=== PATIENT | male | born 1935 | race Caucasian/White ===

== ENCOUNTER → 2022-04-29 | Outpatient (CLI) | payer MEDICARE, OTHER, SELFPAY ==
[2022-04-29 11:16] LABS: Erythrocyte Sedimentation Rate 2 mm/hr (0-20)
[2022-04-29 11:30] LABS: Absolute Lymphocyte Count 1.89 X10^3/uL (0.83-4.51); Basophil# 0.04 X10^3/uL; Basophil% 0.7 % (0-1); Eosinophil# 0.11 X10^3/uL; Eosinophils% 1.9 % (0-5); Hematocrit 41.2 % (40-54); Hemoglobin 13.1 g/dL (13.0-16.5); Lymphocyte # 1.89 X10^3/ul (0.83-4.51); Lymphocyte % 32.4 % (19-41); Mean Corp Hgb Conc 31.8 g/dL (32-36); Mean Corpuscular Volume 94.5 fL (80-94); Mean Platelet Vol. 10.6 fl (6.2-12.0); Monocyte# 0.81 X10^3/uL; Monocyte% 13.9 % (0-10); NRBC Flagged by Analyzer 0 % (0-5); Neutrophil # 2.97 X10^3/uL (2.7-7.7); Neutrophil % 50.8 % (47-70); Platelet Count 112 K/mm3 (150-450); RBC Distribution Width CV 13.2 % (11.6-14.6); RBC Distribution Width SD 45.9 fl (35.1-43.9); Red Blood Count 4.36 M/mm3 (4.6-6.2); White Blood Count 5.8 K/mm3 (4.4-11.0)
[2022-04-29 11:55] LABS: AST(SGOT) 17 U/L (15-37); Alanine Aminotransfer ALT/SGPT 12 U/L (16-61); Albumin, Serum 3.5 g/dL (3.2-5.0); Alkaline Phosphatase 96 U/L (45-117); Anion Gap 6 (5-15); BUN 19 mg/dL (7-18); BUN/Creat Ratio 14.2 RATIO (10-20); CRP < 2.90 mg/L (0.0-3.0); Calcium,Total 9.4 mg/dL (8.5-10.1); Chloride 107 mmol/L (98-107); Creatinine, Serum 1.34 mg/dL (0.70-1.30); EST Glomerular Filtration Rate 54 mL/min (>60); Est Glom Filt Rate - Afr Amer 65 mL/min (>60); Globulin 3.4 g/dL (2.2-4.2); Glucose 88 mg/dL (74-106); LDH 179 U/L (87-241); Potassium 3.5 mmol/L (3.5-5.1); Protein, Total 6.9 g/dL (6.4-8.2); Sodium Level 142 mmol/L (136-145)
[2022-04-30 13:08] LABS: Anti-Centromere B Ab <0.2 AI (0.0-0.9); Anti-Jo <0.2 AI (0.0-0.9); Anti-Scleroderma-70 AB <0.2 AI (0.0-0.9); RNP Ab <0.2 AI (0.0-0.9); SJOGREN'S Anti-SS-A test 0.2 AI (0.0-0.9); SJOGREN'S Anti-SS-B test < 0.2 AI (0.0-0.9); Smith Ab <0.2 AI (0.0-0.9)
[2022-04-30 15:08] LABS: Endomysial Antibody IgA Negative (Negative)
[2022-04-30 22:50] LABS: Immunoglobulin A 171 mg/dL (61-437); t-Transglutaminase IgA <2 U/mL (0-3)
[2022-04-30 22:58] LABS: Anti-dsDNA Ab 1 IU/mL (0-9)
[2022-05-05 03:07] LABS: Albumin 3.6 g/dL (2.9-4.4); Alpha-1-Globulins 0.2 g/dL (0.0-0.4); Alpha-2-Globulins 0.6 g/dL (0.4-1.0); Cytoplasmic Ab (C-ANCA) <1:20 titer (Neg:<1:20); Gamma Globulin 1.3 g/dL (0.4-1.8); Immunoglobulin A 174 mg/dL (61-437); Immunoglobulin E 48 IU/mL (6-495); Immunoglobulin G 879 mg/dL (603-1613); Immunoglobulin M 555 mg/dL (15-143); PROEL- TOTAL PROTEIN 6.4 g/dL (6.0-8.5)
[2022-05-05 14:25] LABS: Perinuclear Ab (P-ANCA) <1:20 titer (Neg:<1:20)
== END | disposition home or self-care (01) ==
PROVIDERS: PCP Internal Medicine; Referring Provider Internal Medicine Gastroenterology; Visit Provider Internal Medicine Gastroenterology
DX: R19.8 Other specified symptoms and signs involving the digestive system and abdomen (principal)
CPT/HCPCS: 36415; 80053; 82784; 82785; 83516; 83615; 84165; 85025; 85652; 86140; 86225; 86235; 86255; 86256; 86334

== ENCOUNTER → 2022-05-05 | Outpatient (CLI) | payer MEDICARE, OTHER, SELFPAY ==
[2022-05-08 20:34] LABS: Pancreatic Elastase, Fecal 283 (>200)
[2022-05-11 19:05] LABS: Calprotectin, Stool 25 ug/g (0-120)
== END | disposition home or self-care (01) ==
PROVIDERS: PCP Internal Medicine; Referring Provider Internal Medicine Gastroenterology; Visit Provider Internal Medicine Gastroenterology
DX: K58.9 Irritable bowel syndrome, unspecified (principal); R19.8 Other specified symptoms and signs involving the digestive system and abdomen
CPT/HCPCS: 82653; 83630; 83993; 87177; 87209; 87329

== ENCOUNTER → 2022-05-12 | Outpatient (CLI) | payer MEDICARE, OTHER, SELFPAY ==
--- NOTE | 2022-05-12 10:02 | NM_ITS ---
CLINICAL: 86-year-old male with history of clinical gastroparesis. SEMI-SOLID PHASE 99m Tc SULFUR COLLOID GASTRIC EMPTYING STUDY COMPARISON: None available FINDINGS: The patient was administered 1.2 mCi of 99m Tc sulfur colloid mixed with oatmeal and consumed per os. Image acquisitions in the anterior-posterior projections were obtained for 60 minutes. There is prompt visualization of the stomach. There is no gastroesophageal reflux identified. The T ? raw data emptying was calculated to be 54.9 minutes, (Normal: 12-56 minutes). NM/Gastric Emptying Study IMPRESSION: 1. NORMAL 99m Tc sulfur colloid semi-solid phase (oatmeal) gastric emptying imaging examination. A. There is upper limits of normal normal and preserved semi-solid phase gastric emptying compared to normal controls. (Sana et al, J Nucl Med Tech 38: 186, 2010). Electronically Signed: Tr Tellez, at 20:20 EST ,
== END | disposition home or self-care (01) ==
LOC: NM 09:57
PROVIDERS: PCP Internal Medicine; Referring Provider Internal Medicine Gastroenterology; Visit Provider Internal Medicine Gastroenterology
DX: R19.8 Other specified symptoms and signs involving the digestive system and abdomen (principal)
CPT/HCPCS: 78264; A9541

== ENCOUNTER → 2022-05-28 | Outpatient (CLI) | payer MEDICARE, OTHER, SELFPAY ==
--- NOTE | 2022-05-28 06:58 | RAD_ITS ---
STUDY: X-RAY BONE SURVEY COMPLETE REASON FOR EXAM: Male, 86 years old. MGUS -- Bony demineralization with chronic mild compression superior endplate T12 vertebral body. -- -- pt had CT done today Pls refer TECHNIQUE: One view of the pelvis was obtained. 2 views of the cervical spine were obtained. 2 views of the thoracic spine were obtained. 2 views of the lumbar spine were obtained. 8 views of the femur. 4 views of the humerus. : 2 views of the skull were obtained. COMPARISON: None. FINDINGS: CHEST: Diminished inspiratory effort with minor basilar atelectasis on the left. There is no demonstrated pleural abnormality. Pacer noted on the left with electrodes in satisfactory position Normal size heart. Normal mediastinum and joaquin. Normal visualized pulmonary arteries. Mildly calcified aortic arch and descending thoracic aorta. Postop change status post median sternotomy and CABG Normal visualized thoracic spine. Normal visualized ribs, clavicles, and shoulders. Postop change status post cholecystectomy. PELVIS: There is a non-specific bowel gas pattern. Normal visualized soft tissue structures. Normal bilateral iliac wings, sacroiliac joints and visualized sacrum. Normal visualized bilateral superior and inferior pubic rami. Normal pubic symphysis. Normal ischial tuberosities. Normal visualized right femoral head. Normal right acetabulum. Normal right hip joint. Normal visualized left femoral head. Normal left acetabulum. Normal left hip joint. CERVICAL SPINE: Normal anterior atlantoaxial articulation. Normal odontoid process. Normal cervical lordosis. Normal vertebral bodies and endplates. Multilevel disc space narrowing and endplate spurring The soft tissue structures are unremarkable. THORACIC SPINE: Normal kyphosis of the thoracic spine. There is no substantial scoliosis. Mild chronic wedging of superior endplate of T12. Normal disc space heights. The soft tissue structures are unremarkable. LUMBAR SPINE: Normal lumbar lordosis. There is no substantial scoliosis. There is a normal alignment of the vertebrae. Normal vertebral bodies and endplates. Normal disc space heights. The soft tissue structures are unremarkable. RIGHT FEMUR: Normal visualized femur. Normal visualized soft tissue structure. LEFT FEMUR: Normal visualized femur. Normal visualized soft tissue structure. RIGHT HUMERUS :Normal visualized humerus. There is no demonstrated fracture or osseous destructive process. There are surgical clips in the soft tissues of the medial calf. LEFT HUMERUS:Normal visualized humerus. There is no demonstrated fracture or osseous destructive process. There is no demonstrated soft tissue abnormality. SKULL: There is no demonstrated soft tissue swelling. Normal osseous calvarium. Normal visualized facial bones. Normal visualized paranasal sinuses. RAD/Bone Survey Comp(Axial&Append) IMPRESSION: Bony structures are diffusely osteopenic consistent with age Chronic wedging of superior endplate T12. No lytic changes to suggest presence of multiple myeloma or plasmacytoma Electronically Signed: Matthew Myles MD at 18:56 EDT ,
--- NOTE | 2022-05-28 06:58 | CT_ITS ---
STUDY: CT CHEST, ABDOMEN T PELVIS WITH CONTRAST REASON FOR EXAM: Male, 86 years old. MGUS. Intermittent epigastric pain. RADIATION DOSAGE (If Supplied By Facility): CTDIvol = ( 19.01 ) mGy, DLP = ( 1848.31 ) mGycm TECHNIQUE: Transaxial imaging was performed following intravenous administration of IV 100mL Isovue-370. Individualized dose optimization techniques were used for this CT. COMPARISON: No relevant priors. FINDINGS: CHEST Heart and great vessels: Mild cardiomegaly, with particular distention of the left atrium and left ventricle. Implanted cardiac device partially visible left chest with leads extending into the right atrium, right ventricle and along the margin of the left ventricle. Status post CABG. Calcific atherosclerosis of the [place] coronary arteries. No pulmonary embolus. No dissection or aneurysm of the thoracic aorta. Lungs, pleura, airways: No pneumonia, edema, or acute abnormality in the lungs. No pleural effusion. No pneumothorax. Mild subsegmental atelectasis lung bases. Mediastinum: No adenopathy or mass or hematoma. Osseous:No acute osseous abnormality. Chronic mild compression superior endplate T12 vertebral body. Bony demineralization. Chest wall: No concerning findings. ABDOMEN AND PELVIS Liver: No concerning lesions. Subcentimeter benign cyst anterior aspect right lobe. Gallbladder and biliary tree: Status post cholecystectomy. No biliary ductal dilation. Pancreas: No pancreatic lesions or inflammation. Spleen: Normal size, no splenic lesions. Adrenal glands: No concerning masses. Kidneys and ureters: No hydronephrosis or renal stones. No concerning masses. No ureteral dilation. Bowel: Normal appendix. No obstruction or inflammation of the bowel. 2 noninflamed diverticula off the transverse duodenum. Urinary bladder: No stones or wall thickening. Reproductive: Prostate mildly enlarged. Vascular: No abdominal aortic aneurysm. Prominent atherosclerosis of the distal abdominal aorta and iliac arteries. Patent portal and mesenteric veins. Retroperitoneal and peritoneal spaces: Trace simple density ascites in the pelvis. No free air, no extraluminal air, no abscess, no lymphadenopathy. Osseous: No acute osseous abnormality. Bony demineralization. Abdominal and pelvic wall: No concerning findings. Any findings described in the findings sections and not included in the impression are incidental and do not require imaging follow-up. CT/CT Chest, Abd, Pel w/Contrast IMPRESSION: No acute findings. Mild cardiomegaly, status post CABG. Bony demineralization with chronic mild compression superior endplate T12 vertebral body. Trace of simple density ascites in the pelvis. Electronically Signed: Bernabe Pruett MD at 7:47 EDT Reading Location ID and State: [facility] / [place] Tel , Service support ,
== END | disposition home or self-care (01) ==
LOC: CT 06:57
PROVIDERS: PCP Internal Medicine; Visit Provider Internal Medicine Medical Oncology
DX: D47.2 Monoclonal gammopathy (principal); C88.0 Waldenstrom macroglobulinemia
CPT/HCPCS: 71260; 74177; 77075; Q9967

== ENCOUNTER 2022-07-09 06:31 | Day surgery (SDC) | payer MEDICARE, OTHER, SELFPAY ==
[2022-07-09 07:00] VITALS: BP 132/58; PULSE 73; RESP 16; TEMP 36.7; O2SAT 95; BMI 30.4
[2022-07-09] MEDS: Lactated Ringers 1,000 ML 15 ML IV (07:04)
--- NOTE | 2022-07-09 07:45 | EGD_PTH ---
PATIENT: LIZZ GAONA LOC: EN U#:[id number] AGE/SX: 86/M ROOM: RE07/09/[address]: Dr. Charlie Michelle DO : 1935 BED: DIS: 07/09/2022 SPEC #: [id number] RECD: 07/09/22 10:14 STATUS: СВЕТЛАНА JANIE #: [id number] SHIRIN: 07/09/22 07:[address]: Charlie Michelle DEPT: SURGICAL PATHOLOGY RECD BY: Kostas Morel ENTERED: 07/09/22 12:15 SP TYPE: EGD BIOPSY AJAY DR: Dr. Justyn Saldana MD Tissues: A - Duodenum, NOS B - Esophagus, NOS Procedures: Special Stain Group II Surgery Specimen Level IV Alcian Blue/PAS (control) HEADER OPERATION: EGD with biopsies (MAC) PRE-OP DIAGNOSIS: Screening TISSUE SUBMITTED: A ? Duodenum biopsy, B ? Distal esophagus biopsy MICROSCOPIC DIAGNOSIS A. Duodenum, biopsy: No pathologic change. B. Distal esophagus, biopsy: Gastroesophageal junctional mucosa with mild chronic inflammation. No evidence of goblet cell metaplasia. See comment. AM:layla 07/10/2022 MICROSCOPIC DESCRIPTION Slides are reviewed. GROSS DESCRIPTION A - Received in fixative is one container labeled with the patient's name and designated duodenum biopsy. The specimen consists of one irregular fragment of light durham soft tissue that measures 0.5 x 0.5 x 0.1 cm. The specimen is totally submitted in one cassette. B - Received in fixative is one container labeled with the patient's name and designated distal esophagus. The specimen consists of multiple irregular fragments of light durham soft tissue that in aggregate measure 1.0 x 1.0 x 0.1 cm. The specimen is totally submitted in one cassette. / AM:layla 07/09/2022 TC:3 CPT: 20408 x2, 12223
--- NOTE | 2022-07-09 07:47 | HP.PCM_ITS ---
History and Physical Date of Admission: 07/09/22 86 M who presents to the office today for Initial consult. PMH BPH, CAD, cardiac pacemaker, CKD III, CHF, SCC, hyperlipidemia, HTN, ischemic cardiomyopathy, Hx [place], DORENE. PSH cholecystectomy, CABG, PTCA. Previous workup Colonoscopy?5+ years prior with likely normal results. EGD 10.29.15?JPH advanced to second portion of duodenum noting distal esophageal stricture; hiatal hernia; esophagitis; gastric erythema. CT abd/pel 1?JPH abdominal pain noting nonspecific mesenteric stranding in the mid abdomen; high density material seen in stomach; small umbilical hernia CT abd/pel JPH 06.04.21?with possibility of appendagitis; small umbilical hernia. *BGI established 04.29.22 with referral from PCP. He has been having difficulty with abdominal bloating, constipation hard stool with incomplete evacuation/diarrhea each lasting approximately a week, bloody stool for a week approximately three weeks ago spontaneously resolved, intermittent lower abdominal pain. ROS Const Constitutional: No anorexia, fatigue, fever(s), weight change or sleep problems Eyes Eyes: No change in vision ENT ENT: No abnormal hearing, difficulty swallowing, mouth lesions, tongue swelling or throat swelling Resp Respiratory: No cough or shortness of breath Cardio Cardiology: No chest pain at rest, chest pain with exertion, shortness of breath or dyspnea on exertion Gastro GI: No difficulty swallowing Genitourinary Male: No difficulty urinating or burning urination Musc Musculoskeletal: No joint pain, joint swelling, muscle weakness or decreased muscle mass Skin Skin: No hair loss in leg, yellowing of the eye, itchy eyes, rash, skin ulcer or skin swelling Neuro Neurology: No abnormal hearing, abnormal movements, confusion, unsteady gait/balance or memory loss Psych Psychiatric: No anxiety, No confusion and No memory loss Endo Endocrine: No fatigue or weight change Aller/Imm Allergy/Immunologic: No itchy eyes, throat swelling or tongue swelling Juan Manuel/Lymp Hematologic/Lymphatic: No easy bleeding, easy bruising or enlarged lymph nodes Exam Const General: cooperative and comfortable Nutritional Appearance: average body habitus and well nourished [facility] Head: normal to inspection Ears: hearing grossly normal bilaterally Nose: external nose normal Face and sinus: normal facial exam Mouth: oral mucosae normal Throat: posterior oropharynx normal Eyes General: appearance normal, both eyes and all related structures Neck Neck: normal visual inspection Chest Chest palpation & inspection: normal inspection of the chest and normal palpation of entire chest wall Resp Effort & Inspection: normal respiratory effort Auscultation: Bilateral: Clear to Auscultation Cardio Palpation: normal PMI Rate: regular rate Rhythm: regular rhythm GI Inspection: normal to inspection Auscultation: normal bowel sounds Percussion: normal to percussion Palpation: no hepatosplenomegaly Skin General: no rashes or lesions noted Neuro General: patient alert Extrem General: normal to inspection Psych Affect: normal affect Quality Reporting Tobacco Screening (CMS 138) Smoking Status: Former smoker Assessment and Plan Assessment and Plan (1) 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 After having a long talk with his daughter I suspect that he has elements of gastroparesis but if he is getting full very fast.? He is lost a significant amount of weight but he has lost some weight and he notices that his pants are little bit looser.? He also has the presence of a ventral hernia on physical examination.? He finds it very uncomfortable.? I recommended a abdominal binder.? We may have to get a CT scan of the abdomen pelvis with oral contrast if that does not work.? Also due to diagnosis because he takes aspirin and Plavix would be medication i nduced gastroparesis secondary to inflammation at the base of the stomach altering his contractility.? We will get blood work, stool studies and a upper endoscopy. ? ? ? Orders: Orders Comprehensive Metabolic Profil Today R19.8 - Other specified symptoms and signs involving the digestive system and abdomen ? CRP Today R19.8 - Other specified symptoms and signs involving the digestive system and abdomen ? LDH Today R19.8 - Other specified symptoms and signs involving the digestive system and abdomen ? CBC W/Diff, Automated Today R19.8 - Other specified symptoms and signs involving the digestive system and abdomen ? Erythrocyte Sed Rate Today R19.8 - Other specified symptoms and signs involving the digestive system and abdomen ? SLIM Comprehensive Panel Today R19.8 - Other specified symptoms and signs involving the digestive system and abdomen ? Calprotectin, Stool Today R19.8 - Other specified symptoms and signs involving the digestive system and abdomen ? OVA+PARA w/Giardia EIA [id number] Today R19.8 - Other specified symptoms and signs involving the digestive system and abdomen ? CDIFF (PCR) Today R19.8 - Other specified symptoms and signs involving the digestive system and abdomen ? ENTERIC PATHOGEN PANEL STOOL Today K58.9 - Irritable bowel syndrome without diarrhea, R19.8 - Other specified symptoms and signs involving the digestive system and abdomen ? Stool Lactoferrin/WBC Today R19.8 - Other specified symptoms and signs involving the digestive system and abdomen ? Gastric Emptying Study Today R19.8 - Other specified symptoms and signs involving the digestive system and abdomen ? ANCA Today R19.8 - Other specified symptoms and signs involving the digestive system and abdomen ? Celiac Disease Profile Today R19.8 - Other specified symptoms and signs involving the digestive system and abdomen ? Immunoglobulins G/A/M/E Today R19.8 - Other specified symptoms and signs involving the digestive system and abdomen ? MERY + Protein Elect, Serum Today R19.8 - Other specified symptoms and signs involving the digestive system and abdomen ? Pancreatic Elastase, Fecal Today R19.8 - Other specified symptoms and signs involving the digestive system and abdomen ? Miscellaneous Lab Procedure Today R19.8 - Other specified symptoms and signs involving the digestive system and abdomen ? Coding Level of Care Code Off vis,new,level 3 Diagnoses Alternating constipation and diarrhea? R19.8 I have examined the patient and the H&P has been reviewed. There are no clinical changes since date of exam.
[2022-07-09 08:10] VITALS: BP 132/58; BP 135/67; PULSE 65; RESP 16; TEMP 36; O2SAT 92
[2022-07-09 08:15] VITALS: BP 132/58; BP 132/69; PULSE 61; RESP 16; O2SAT 95
--- NOTE | 2022-07-09 08:17 | OP.CCLET_ITS ---
07/09/2022 Justyn Saldana Re : Upper GI endoscopy procedure for Branden Montanor Les This procedure was performed on July. My impressions and recommendations are as follows: Impressions : - Grade I esophageal varices. - Z-line irregular, 40 cm from the incisors. Biopsied. - Moderate Schatzki ring. Dilated. - No gross lesions in the stomach. - Erythematous duodenopathy secondary to bile induced duodenitis causing diarrhea. Biopsied. - Non-bleeding duodenal diverticulum. Recommendations : - Discharge patient to home. - Resume previous diet. - Continue present medications. - Await pathology results. - Repeat upper endoscopy for surveillance. My findings are described in the full procedure note, which is enclosed. If I can be of further assistance, please feel free to contact me at . Sincerely, Charlie Michelle, 07/09/2022 8:16:39 AM This report has been signed electronically.
--- NOTE | 2022-07-09 08:17 | OP.EGD_ITS ---
Patient Name: Branden Bosch Procedure Date: 07/09/2022 7:42 AM Date of : 1935 Age: 86 Procedure: Upper GI endoscopy Indications: Failure to respond to medical treatment Providers: Charlie Michelle DO Referring MD: Charlie Michelle DO Medicines: Monitored Anesthesia Care Patient Profile: This is an 86 year old male. Refer to note in patient chart for documentation of history and physical. Patient has symptoms of chronic epigastric abdominal pain and chronic dyspepsia. Complications: No immediate complications. Procedure: Pre-Anesthesia Assessment: - Prior to the procedure, a History and Physical was performed, and patient medications and allergies were reviewed. The patient is competent. The risks and benefits of the procedure and the sedation options and risks were discussed with the patient. All questions were answered and informed consent was obtained. Patient identification and proposed procedure were verified by the physician in the pre-procedure area. Mental Status Examination: alert and oriented. Airway Examination: normal oropharyngeal airway and neck mobility. Respiratory Examination: clear to auscultation. CV Examination: normal. Prophylactic Antibiotics: The patient does not require prophylactic antibiotics. Prior Anticoagulants: The patient has taken no previous anticoagulant or antiplatelet agents. ASA Grade Assessment: III - A patient with severe systemic disease. After reviewing the risks and benefits, the patient was deemed in satisfactory condition to undergo the procedure. The anesthesia plan was to use monitored anesthesia care (MAC). Immediately prior to administration of medications, the patient was re-assessed for adequacy to receive sedatives. The heart rate, respiratory rate, oxygen saturations, blood pressure, adequacy of pulmonary ventilation, and response to care were monitored throughout the procedure. The physical status of the patient was re-assessed after the procedure. After obtaining informed consent, the endoscope was passed under direct vision. Throughout the procedure, the patient's blood pressure, pulse, and oxygen saturations were monitored continuously. The gastroscope was introduced through the mouth, and advanced to the second part of duodenum. The upper GI endoscopy was accomplished without difficulty. The patient tolerated the procedure well. Scope In: 7:55:40 AM Scope Out: 8:05:37 AM Total Procedure Duration Time 0 hours 9 minutes 57 seconds Findings: Grade I varices were found in the upper third of the esophagus and in the middle third of the esophagus. They were 5 mm in largest diameter. The Z-line was irregular and was found 40 cm from the incisors. Biopsies were taken with a cold forceps for histology. Verification of patient identification for the specimen was done. Estimated blood loss was minimal. A moderate Schatzki ring was found at the gastroesophageal junction. A guidewire was placed and the scope was withdrawn. Dilation was performed with a Savary dilator with no resistance at 42 Fr. The dilation site was examined and showed mild improvement in luminal narrowing. No gross lesions were noted in the entire examined stomach. Patchy mildly erythematous mucosa without active bleeding and with no stigmata of bleeding was found in the duodenal bulb, in the first portion of the duodenum and in the second portion of the duodenum. Biopsies were taken with a cold forceps for histology. Verification of patient identification for the specimen was done. Estimated blood loss was minimal. A 20 mm non-bleeding diverticulum was found in the second portion of the duodenum. Impression: - Grade I esophageal varices. - Z-line irregular, 40 cm from the incisors. Biopsied. - Moderate Schatzki ring. Dilated. - No gross lesions in the stomach. - Erythematous duodenopathy secondary to bile induced duodenitis causing diarrhea. Biopsied. - Non-bleeding duodenal diverticulum. Recommendation: - Discharge patient to home. - Resume previous diet. - Continue present medications. - Await pathology results. - Repeat upper endoscopy for surveillance. Procedure Code(s): --- Professional --- 54173, Esophagogastroduodenoscopy, flexible, transoral; with insertion of guide wire followed by passage of dilator(s) through esophagus over guide wire 73114, 59, Esophagogastroduodenoscopy, flexible, transoral; with biopsy, single or multiple CPT copyright 2017 [employer]. All rights reserved. The codes documented in this report are preliminary and upon web development manager review may be revised to meet current compliance requirements. Charlie Michelle DO 07/09/2022 8:16:39 AM This report has been signed electronically. Number of Addenda: 0 Note Initiated On: 07/09/2022 7:42 AM
[2022-07-09 08:21] VITALS: BP 127/71; BP 132/58; PULSE 60; RESP 16; O2SAT 95
[2022-07-09 08:26] VITALS: BP 132/58; BP 133/69; PULSE 60; RESP 16; TEMP 36.1; O2SAT 93
[2022-07-09 09:03] VITALS: BP 132/58
== END 2022-07-09 09:07 | disposition home or self-care (01) ==
LOC: EN 06:32 → AC 06:33
PROVIDERS: PCP Internal Medicine; Referring Provider Internal Medicine; Visit Provider Internal Medicine Gastroenterology
PROC: 0DJ08ZZ Inspection of Upper Intestinal Tract, Via Natural or Artificial Opening Endoscopic (ICD-10-PCS; CPT 43235; principal; 2022-07-09 07:40)
DX: R19.8 Other specified symptoms and signs involving the digestive system and abdomen (principal); I85.00 Esophageal varices without bleeding; K43.9 Ventral hernia without obstruction or gangrene; Z87.891 Personal history of nicotine dependence; K57.10 Diverticulosis of small intestine without perforation or abscess without bleeding
CPT/HCPCS: 43239; 43248; 88305; 88313; J7120

== ENCOUNTER → 2022-11-24 | Outpatient (CLI) | payer MEDICARE, OTHER, SELFPAY ==
[2022-11-24 08:36] LABS: Absolute Lymphocyte Count 1.93 X10^3/uL (0.83-4.51); Absolute Neutrophil Count 2.5 X10^3/uL (2.0-7.7); Basophil# 0.03 X10^3/uL; Basophil% 0.6 % (0-1); Eosinophil# 0.14 X10^3/uL; Eosinophils% 2.7 % (0-5); Hematocrit 40.3 % (40-54); Hemoglobin 12.7 g/dL (13.0-16.5); Lymphocyte # 1.93 X10^3/ul (0.83-4.51); Lymphocyte % 37.2 % (19-41); Mean Corp Hgb Conc 31.5 g/dL (32-36); Mean Corpuscular Hgb 29.7 pg (27.0-32.0); Mean Corpuscular Volume 94.4 fL (80-94); Mean Platelet Vol. 10.5 fl (6.2-12.0); Monocyte# 0.58 X10^3/uL; Monocyte% 11.2 % (0-10); NRBC Flagged by Analyzer 0 % (0-5); Neutrophil # 2.49 X10^3/uL (2.7-7.7); Neutrophil % 47.9 % (47-70); Platelet Count 147 K/mm3 (150-450); RBC Distribution Width CV 13.7 % (11.6-14.6); RBC Distribution Width SD 46.9 fl (35.1-43.9); Red Blood Count 4.27 M/mm3 (4.6-6.2); White Blood Count 5.2 K/mm3 (4.4-11.0)
[2022-11-24 08:57] LABS: ALB/GLOB Ratio 1.1 RATIO (0.9-2.4); AST(SGOT) 13 U/L (15-37); Alanine Aminotransfer ALT/SGPT 14 U/L (16-61); Albumin, Serum 3.5 g/dL (3.2-5.0); Alkaline Phosphatase 102 U/L (45-117); Anion Gap 3 (5-15); BUN 23 mg/dL (7-18); BUN/Creat Ratio 16.4 RATIO (10-20); Calcium,Total 8.8 mg/dL (8.5-10.1); Chloride 108 mmol/L (98-107); EST Glomerular Filtration Rate 51 mL/min (>60); Est Glom Filt Rate - Afr Amer 62 mL/min (>60); Globulin 3.3 g/dL (2.2-4.2); Glucose 101 mg/dL (74-106); LDH 147 U/L (87-241); Protein, Total 6.8 g/dL (6.4-8.2); Sodium Level 140 mmol/L (136-145)
[2022-11-25 18:08] LABS: Albumin 3.4 g/dL (2.9-4.4); Alpha-1-Globulins 0.2 g/dL (0.0-0.4); Alpha-2-Globulins 0.6 g/dL (0.4-1.0); Free Kappa Light Chains 53.9 mg/L (3.3-19.4); Free Lambda Light Chains 21.4 mg/L (5.7-26.3); Gamma Globulin 1.2 g/dL (0.4-1.8); Immunoglobulin A 152 mg/dL (61-437); Immunoglobulin G 827 mg/dL (603-1613); Immunoglobulin M 635 mg/dL (15-143); PROEL- TOTAL PROTEIN 6.1 g/dL (6.0-8.5)
== END | disposition home or self-care (01) ==
LOC: LAB 07:37
PROVIDERS: PCP Internal Medicine; Referring Provider Internal Medicine Medical Oncology; Visit Provider Internal Medicine Medical Oncology
DX: D47.2 Monoclonal gammopathy (principal); R19.8 Other specified symptoms and signs involving the digestive system and abdomen
CPT/HCPCS: 36415; 80053; 82784; 83615; 83883; 84165; 85025; 86334

== ENCOUNTER 2023-05-24 09:29 | Outpatient (CLI) | payer MEDICARE, SELFPAY ==
[2023-05-24 09:50] LABS: Absolute Lymphocyte Count 2.27 X10^3/uL (0.83-4.51); Absolute Neutrophil Count 3.4 X10^3/uL (2.0-7.7); Basophil# 0.04 X10^3/uL; Basophil% 0.6 % (0-1); Eosinophil# 0.19 X10^3/uL; Eosinophils% 2.8 % (0-5); Hematocrit 39.3 % (40-54); Hemoglobin 12.8 g/dL (13.0-16.5); Lymphocyte # 2.27 X10^3/ul (0.83-4.51); Lymphocyte % 33.5 % (19-41); Mean Corp Hgb Conc 32.6 g/dL (32-36); Mean Platelet Vol. 9.9 fl (6.2-12.0); Monocyte# 0.83 X10^3/uL; Monocyte% 12.2 % (0-10); NRBC Flagged by Analyzer 0 % (0-5); Neutrophil % 50.2 % (47-70); Platelet Count 144 K/mm3 (150-450); RBC Distribution Width CV 14.1 % (11.6-14.6); RBC Distribution Width SD 47.4 fl (35.1-43.9); Red Blood Count 4.27 M/mm3 (4.6-6.2); White Blood Count 6.8 K/mm3 (4.4-11.0)
[2023-05-24 10:15] LABS: AST(SGOT) 15 U/L (15-37); Alanine Aminotransfer ALT/SGPT 16 U/L (16-61); Albumin, Serum 3.5 g/dL (3.2-5.0); Alkaline Phosphatase 103 U/L (45-117); Anion Gap 5 (5-15); BUN 30 mg/dL (7-18); BUN/Creat Ratio 22.1 RATIO (10-20); Calcium,Total 8.8 mg/dL (8.5-10.1); Chloride 113 mmol/L (98-107); Creatinine, Serum 1.36 mg/dL (0.70-1.30); EST Glomerular Filtration Rate 53 mL/min (>60); Est Glom Filt Rate - Afr Amer 64 mL/min (>60); Globulin 3.4 g/dL (2.2-4.2); Glucose 93 mg/dL (74-106); LDH 155 U/L (87-241); Potassium 3.6 mmol/L (3.5-5.1); Protein, Total 6.9 g/dL (6.4-8.2); Sodium Level 140 mmol/L (136-145)
[2023-05-25 16:10] LABS: Albumin 3.7 g/dL (2.9-4.4); Alpha-1-Globulins 0.2 g/dL (0.0-0.4); Alpha-2-Globulins 0.6 g/dL (0.4-1.0); Free Kappa Light Chains 57.2 mg/L (3.3-19.4); Free Lambda Light Chains 20.6 mg/L (5.7-26.3); Gamma Globulin 1.2 g/dL (0.4-1.8); Immunoglobulin A 151 mg/dL (61-437); Immunoglobulin G 757 mg/dL (603-1613); Immunoglobulin M 749 mg/dL (15-143); PROEL- TOTAL PROTEIN 6.4 g/dL (6.0-8.5)
== END 2023-05-24 23:59 | disposition home or self-care (01) ==
LOC: LAB 09:31
PROVIDERS: PCP Internal Medicine; Referring Provider Internal Medicine Medical Oncology; Visit Provider Internal Medicine Medical Oncology
DX: R19.8 Other specified symptoms and signs involving the digestive system and abdomen (principal); D47.2 Monoclonal gammopathy
CPT/HCPCS: 36415; 80053; 82784; 83615; 83883; 84165; 85025; 86334

== ENCOUNTER → 2023-11-17 | Outpatient (CLI) | payer MEDICARE, SELFPAY ==
[2023-11-17 09:28] LABS: Absolute Lymphocyte Count 1.58 X10^3/uL (0.83-4.51); Absolute Neutrophil Count 3.2 X10^3/uL (2.0-7.7); Basophil# 0.03 X10^3/uL; Basophil% 0.5 % (0-1); Eosinophil# 0.15 X10^3/uL; Eosinophils% 2.7 % (0-5); Hematocrit 38.6 % (40-54); Hemoglobin 12.2 g/dL (13.0-16.5); Lymphocyte # 1.58 X10^3/ul (0.83-4.51); Lymphocyte % 28.3 % (19-41); Mean Corp Hgb Conc 31.6 g/dL (32-36); Mean Corpuscular Hgb 29.7 pg (27.0-32.0); Mean Corpuscular Volume 93.9 fL (80-94); Mean Platelet Vol. 10.7 fl (6.2-12.0); Monocyte# 0.66 X10^3/uL; Monocyte% 11.8 % (0-10); NRBC Flagged by Analyzer 0 % (0-5); Neutrophil # 3.15 X10^3/uL (2.7-7.7); Neutrophil % 56.3 % (47-70); Platelet Count 121 K/mm3 (150-450); RBC Distribution Width CV 13.3 % (11.6-14.6); RBC Distribution Width SD 45.9 fl (35.1-43.9); Red Blood Count 4.11 M/mm3 (4.6-6.2); White Blood Count 5.6 K/mm3 (4.4-11.0)
[2023-11-17 09:29] LABS: Erythrocyte Sedimentation Rate 1 mm/hr (0-20)
[2023-11-17 09:53] LABS: ALB/GLOB Ratio 0.9 RATIO (0.9-2.4); AST(SGOT) 15 U/L (15-37); Alanine Aminotransfer ALT/SGPT 14 U/L (16-61); Albumin, Serum 3.3 g/dL (3.2-5.0); Alkaline Phosphatase 111 U/L (45-117); Anion Gap 7 (5-15); BUN 35 mg/dL (7-18); CRP 3.98 mg/L (0.0-3.0); Calcium,Total 9.3 mg/dL (8.5-10.1); Chloride 106 mmol/L (98-107); EST Glomerular Filtration Rate 51 mL/min (>60); Est Glom Filt Rate - Afr Amer 62 mL/min (>60); Globulin 3.6 g/dL (2.2-4.2); Glucose 94 mg/dL (74-106); Protein, Total 6.9 g/dL (6.4-8.2); Sodium Level 141 mmol/L (136-145)
[2023-11-18 18:08] LABS: Albumin 3.4 g/dL (2.9-4.4); Alpha-1-Globulins 0.2 g/dL (0.0-0.4); Alpha-2-Globulins 0.6 g/dL (0.4-1.0); Gamma Globulin 1.2 g/dL (0.4-1.8); Immunoglobulin A 151 mg/dL (61-437); Immunoglobulin G 843 mg/dL (603-1613); Immunoglobulin M 735 mg/dL (15-143); PROEL- TOTAL PROTEIN 6.2 g/dL (6.0-8.5)
== END | disposition home or self-care (01) ==
LOC: LAB 08:34
PROVIDERS: PCP Internal Medicine; Referring Provider Internal Medicine Medical Oncology; Visit Provider Internal Medicine Medical Oncology
DX: D47.2 Monoclonal gammopathy (principal); R19.8 Other specified symptoms and signs involving the digestive system and abdomen
CPT/HCPCS: 36415; 80053; 82784; 83883; 84165; 85025; 85652; 86140; 86334

== ENCOUNTER → 2024-05-15 | Outpatient (CLI) | payer MEDICARE, SELFPAY ==
[2024-05-15 11:10] LABS: Erythrocyte Sedimentation Rate 1 mm/hr (0-20)
[2024-05-15 11:13] LABS: Absolute Lymphocyte Count 1.88 X10^3/uL (0.83-4.51); Absolute Neutrophil Count 2.9 X10^3/uL (2.0-7.7); Basophil# 0.03 X10^3/uL; Basophil% 0.5 % (0-1); Eosinophils% 1.8 % (0-5); Hemoglobin 12.6 g/dL (13.0-16.5); Immature Platelet Fraction 2.3 % (1.0-7.9); Lymphocyte # 1.88 X10^3/ul (0.83-4.51); Lymphocyte % 33.7 % (19-41); Mean Corp Hgb Conc 32.3 g/dL (32-36); Mean Corpuscular Hgb 30.3 pg (27.0-32.0); Mean Corpuscular Volume 93.8 fL (80-94); Mean Platelet Vol. 10.5 fl (6.2-12.0); Monocyte# 0.66 X10^3/uL; Monocyte% 11.8 % (0-10); NRBC Flagged by Analyzer 0 % (0-5); Neutrophil # 2.87 X10^3/uL (2.7-7.7); Neutrophil % 51.5 % (47-70); Platelet Count 125 K/mm3 (150-450); RBC Distribution Width CV 13.5 % (11.6-14.6); RET-HE 34.4 pg (30-35); Red Blood Count 4.16 M/mm3 (4.6-6.2); White Blood Count 5.6 K/mm3 (4.4-11.0)
[2024-05-15 11:45] LABS: Ferritin 87 ng/mL (37-417); Iron Binding Capacity,Total 247 ug/dL (250-450); Vitamin B12 417 pg/mL (180-914)
[2024-05-15 12:30] LABS: ALB/GLOB Ratio 1.3 RATIO (0.9-2.4); AST(SGOT) 18 U/L (<=37); Alanine Aminotransfer ALT/SGPT 11 U/L (<=46); Albumin, Serum 3.8 g/dL (3.4-4.8); Alkaline Phosphatase 98 U/L (40-129); Anion Gap 9 (5-15); BUN 28 mg/dL (4-19); BUN/Creat Ratio 20.7 RATIO (10-20); Calcium,Total 8.8 mg/dL (7.6-11.0); Chloride 105 mmol/L (98-108); Creatinine, Serum 1.37 mg/dL (0.70-1.20); EST Glomerular Filtration Rate 50 (>60); Globulin 2.8 g/dL (2.2-4.2); Glucose 93 mg/dL (70-99); Potassium 4.1 mmol/L (3.3-5.1); Protein, Total 6.6 g/dL (5.9-8.4); Sodium Level 139 mmol/L (133-145); Total Bilirubin 0.83 mg/dL (0.00-1.30)
[2024-05-15 12:32] LABS: CRP < 3.00 mg/L (0.0-3.0); Iron 64 ug/dL (65-175); Iron Binding Capacity,Unsat 183 ug/dL (228-428); PERCENT IRON SATURATION 25.9 % (9-55)
[2024-05-17 15:08] LABS: Albumin 3.3 g/dL (2.9-4.4); Alpha-1-Globulins 0.2 g/dL (0.0-0.4); Alpha-2-Globulins 0.6 g/dL (0.4-1.0); Free Kappa Light Chains 60.7 mg/L (3.3-19.4); Free Lambda Light Chains 21.5 mg/L (5.7-26.3); GGTP 9 IU/L (0-65); Gamma Globulin 1.3 g/dL (0.4-1.8); Immunoglobulin A 156 mg/dL (61-437); Immunoglobulin G 853 mg/dL (603-1613); Immunoglobulin M 824 mg/dL (15-143); PROEL- TOTAL PROTEIN 6.2 g/dL (6.0-8.5)
== END | disposition home or self-care (01) ==
LOC: LAB 10:21
PROVIDERS: PCP Internal Medicine; Referring Provider Internal Medicine Medical Oncology; Visit Provider Internal Medicine Medical Oncology
DX: C88.00 Waldenstrom macroglobulinemia not having achieved remission (principal); D64.9 Anemia, unspecified; R74.8 Abnormal levels of other serum enzymes
CPT/HCPCS: 36415; 80053; 82607; 82728; 82784; 82977; 83540; 83550; 83883; 84165; 85025; 85045; 85652; 86140; 86334

== ENCOUNTER 2024-10-20 09:22 | Day surgery (SDC) | payer MEDICARE, SELFPAY ==
--- NOTE | 2024-10-19 14:55 | PAT.ANESEVAL ---
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 When Was Last Pacemaker Check QUESTION #4 FULL TEXT: You/Your Family Experience fever (hyperthermia) with Anesthesia Last Oral Intake Last Oral intake: Last Oral Intake NPO since Meds taken in AM with sips of water? 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 - software project engineer: PONV - software project engineer Female No 10/19/24 09:50 HX of Motion Sickness No 10/19/24 09:50 HX of N/V After Surgery No 10/19/24 09:50 Non-Smoker Yes 10/19/24 09:50 Duration of Surgery greater No 10/19/24 09:50 than 60 minutes Number of Risk Factors 1 10/19/24 09:50 PONV Score Low Risk 10/19/24 09:50 Height & Weight Height & Weight: Anesthesia: Height & Weight Height 5 ft 11 in 05/23/24 13:13 Respiratory Assessment Respiratory Assessment - software project engineer: Respiratory Tract Infection Hx - software project engineer Hx Respiratory Tract Infection No 10/19/24 09:50 STOP Sleep Apnea STOP Sleep Apnea - software project engineer: STOP Sleep Apnea - software project engineer Hx Hypertension Yes: CONTROLLED WITH MEDS 10/19/24 09:50 Hx Sleep Apnea Yes 10/19/24 09:50 CPAP Yes 10/19/24 09:50 BIPAP No 10/19/24 09:50 Do you snore loudly (louder than talking or can be heard Do you often feel tired/ fatigued/ sleepy during daytime? Has anyone observed you stop breathing during sleep? STOP Results Positive 10/19/24 09:50 QUESTION #5 FULL TEXT : Do you snore loudly (louder than talking or can be heard through closed doors)? 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 Specify any problems Hx of Preganancy in last 3 N/A 10/19/24 09:50 Months Nurse Filling Out Transfusion [facility]BUCHER 10/19/24 09:50 & Questions: Date: 10/19/24 10/19/24 09:50 Time: 09:50 10/19/24 09:50 Patient unable to answer at this time (ie. confused, unrespo /Reproduction History /Reproductive History - software project engineer: /Reproductive Hx- software project engineer Hx Now No 10/19/24 09:50 Gestational Age (in weeks): EDC: Hx Hx Para Hx Section SAB No 10/19/24 09:50 [facility] Medical History (Updated 08/29/24 @ 09:19 by Blaine Acevedo) Open wound History of steroid therapy Arthritis High cholesterol Back pain Former smoker CPAP (continuous positive airway pressure) dependence Sleep apnea History of edema History of echocardiogram History of stress test History of pacemaker History of heart attack History of irregular heartbeat Cardiology follow-up encounter Cardiac pacemaker Old myocardial infarction GERD (gastroesophageal reflux disease) History of colon polyps Abdominal pain Tremor External hemorrhoid History of squamous cell carcinoma Chronic systolic (congestive) heart failure Edema of right lower extremity Occlusion and stenosis of bilateral carotid arteries DORENE (obstructive sleep apnea) HLD (hyperlipidemia) HTN (hypertension) Restrictive lung disease Acute gastritis without bleeding Left inguinal hernia Chronic constipation Umbilical hernia Low back pain BPH (benign prostatic hyperplasia) Cervical spinal stenosis Ischemic cardiomyopathy Chronic kidney disease, stage 3b Elevated PSA CAD (coronary artery disease) Elevated TSH Home Medications ?Medication ?Instructions ?Recorded ?Last Taken ?Type aspirin 81 mg tablet,delayed 81 mg PO DAILY 03/03/22 08/28/24 History release (Adult Aspirin Regimen) atorvastatin 20 mg tablet 20 mg PO DAILY 03/03/22 Unknown History clopidogrel 75 mg tablet 75 mg PO DAILY 03/03/22 08/23/24 History furosemide 20 mg tablet 20 mg PO DAILY 03/03/22 Unknown History nitroglycerin 0.4 mg sublingual 0.4 mg sublingual Q5M PRN Chest 03/03/22 Unknown History tablet (Nitrostat) Pain ramipril 2.5 mg capsule 2.5 mg PO DAILY 03/03/22 Unknown History spironolactone 25 mg tablet 12.5 mg PO DAILY 03/03/22 Unknown History carvedilol 3.125 mg tablet 3.125 mg PO BID 05/27/22 Unknown History multivitamin 1 tab PO DAILY 07/06/22 Unknown History pantoprazole 40 mg tablet,delayed 40 mg PO BID #60 tabs 03/15/23 Unknown Rx release acetaminophen 500 mg tablet 1,000 mg PO TID PRN pain 06/01/23 Unknown History (Tylenol Extra Strength) CPAP - Continuous Positive Airway 10/19/24 Unknown History Pressure([facility] INFORMATIONAL USE ONLY) Allergy/AdvReac Type Severity Reaction Status Date / Time adhesive tape Allergy Intermediate Other Verified 10/19/24 09:49 hydrochlorothiazide (From Allergy Intermediate Other Verified 10/19/24 09:49 Avalide) irbesartan (From Avalide) Allergy Intermediate Other Verified 10/19/24 09:49 moxifloxacin (From Avelox) Allergy Intermediate Other Verified 10/19/24 09:49 Family History Father History of kidney cancer Surgical History History of cataract removal with insertion of prosthetic lens History of cardiac catheterization Hx of surgical procedure History of coronary artery stent placement Hx of cholecystectomy S/P PTCA (percutaneous transluminal coronary angioplasty) S/P CABG (coronary artery bypass graft) Social History Smoking Status: Former smoker pack-years: 30 how long ago did patient quit smokin years alcohol intake: never Audit: Pertinent Findings Pertinent Findings EKG Perinent findings: February 14, 2024. AV paced. Heart rate 81 bpm. Echo (EF%) pertinent findings: March 25, 2020. EF of 35%. There is diffuse mild hypokinesis of the left ventricle. No aortic stenosis is noted. Right ventricular systolic pressure is 22?27 millimeters of mercury. Consult pertinent findings: August 23, 2024. Owen BUGGYMAN?cardiology. 1. Preop cardiovascular exam-prior to EGD. Patient has been able to do 4 METS without difficulty. Patient may proceed with this procedure from a cardiology standpoint. Hold Plavix for 7 days prior to procedure. Recommend patient remain on aspirin 81 mg uninterrupted. 2. Coronary artery disease?patient denies any anginal symptoms. Continue aspirin, atorvastatin and carvedilol. Plavix can be held for the case. Status post CABG March 14, 2014. (SVG x 4). Cardiac cath March 2021 showed previously stented proximal circumflex to be patent. SVG to the PDA and S VG to the first OM were occluded. 3. Cardiomyopathy-EF of 27% in 2019. [address]. Echo from 2020 has his ejection fraction up to 35%. 4. Hypertension controlled?continue current therapy. Recommendation Anesthesia Recommendation Anesthesia recommendation: OPTIMIZED for anesthesia
[2024-10-20] VITALS (8 sets, daily range): BP systolic 103–129; BP diastolic 60–76; PULSE 60–70; RESP 14–18; TEMP 36.2–36.6; O2SAT 95–100; BMI 30.6
--- NOTE | 2024-10-20 10:09 | HP.PCM_ITS ---
HPI - General General Date of Admission: 10/20/24 Date of Service: 10/20/24 Chief Complaint: Anemia HPI Narrative LIZZ GAONA, is a 88 M who presents the evaluation of anemia. PMH BPH, CAD, cardiac pacemaker, CKD III, CHF, SCC, hyperlipidemia, HTN, ischemic cardiomyopathy, Hx SD, DORENE. PSH cholecystectomy, CABG, PTCA. Previous workup Colonoscopy 5+ years prior with likely normal results. EGD 10.28. JPH advanced to second portion of duodenum noting distal esophageal stricture; hiatal hernia; esophagitis; gastric erythema. CT abd/pel 1.. JPH abdominal pain noting nonspecific mesenteric stranding in the mid abdomen; high density material seen in stomach; small umbilical hernia CT abd/pel JPH 3. with possibility of appendagitis; small umbilical hernia. *BGI established 04.29.22 with referral from PCP. He has been having difficulty with abdominal bloating, constipation hard stool with incomplete evacuation/diarrhea each lasting approximately a week, bloody stool for a week approximately three weeks ago spontaneously resolved, intermittent lower abdominal pain. Alternating constipation/diarrhea, biochemical workup, stool testing, gastric emptying study. ? Biochemical workup CBC, ESR, CMP, CRP, LDH, SLIM comp, ANCA, celiac, IgGAE without pertinent abnormality. ? IgM H555, MERY with monoclonal abnormality with kappa light chain specificity and M-Jorgito 0.6, Crohn?s (apANCA, Jose) ? Stool testing calprotectin, elastase, lactoferrin, C.Difficile (cancelled), EP (cancelled), OP, giardia WNL. ? 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 Workup commenced and without concern for active lymphoma or disease. Observe. Contact 06.10.22 with daughter to discuss plan. Spoke with Lizz who reports that recommended Metamucil which he started three days prior and has had two BM since this time. Taper prednisone to 10mg then stop. EGD 5.4.23 Grade 1 EV upper 1/3 esophagus; irregular Zline 40cm; moderate Schatzki ring, Savary 42F mild improvement; duodenitis; 20mm duodenal diverticulum. OV 07.28.22 alternating constipation (lack of BM up to three days with bloating, previously 3-5) followed by day(s) of loose stools. Abdominal discomfort has resolved. Improvement of bowel frequency following oncology OV where Metamucil (taken 2-3/day) was recommended. Start lactulose QD OV 05.24.23 continues to have alternating constipation/diarrhea; Lactulose started daily for a week but reports this did not alter BM. Is taking Colon Cleanse which he find effective during constipation. No longer using Metamucil. [facility] Medical History Open wound History of steroid therapy Arthritis High cholesterol Back pain Former smoker CPAP (continuous positive airway pressure) dependence Sleep apnea History of edema History of echocardiogram History of stress test History of pacemaker History of heart attack History of irregular heartbeat Cardiology follow-up encounter Cardiac pacemaker Old myocardial infarction GERD (gastroesophageal reflux disease) History of colon polyps Abdominal pain Tremor External hemorrhoid History of squamous cell carcinoma Chronic systolic (congestive) heart failure Edema of right lower extremity Occlusion and stenosis of bilateral carotid arteries DORENE (obstructive sleep apnea) HLD (hyperlipidemia) HTN (hypertension) Restrictive lung disease Acute gastritis without bleeding Left inguinal hernia Chronic constipation Umbilical hernia Low back pain BPH (benign prostatic hyperplasia) Cervical spinal stenosis Ischemic cardiomyopathy Chronic kidney disease, stage 3b Elevated PSA CAD (coronary artery disease) Elevated TSH Home Medications ?Medication ?Instructions ?Recorded ?Last Taken ?Type aspirin 81 mg tablet,delayed 81 mg PO DAILY 03/03/22 0 08/28/24 History release (Adult Aspirin Regimen) atorvastatin 20 mg tablet 20 mg PO DAILY 03/03/22 Unkn own History clopidogrel 75 mg tablet 75 mg PO DAILY 03/03/2208/06 History furosemide 20 mg tablet 20 mg PO DAILY 03/03/22 Unkn own History nitroglycerin 0.4 mg sublingual 0.4 mg sublingual Q5M PRN Chest 03/03/22 Unknown History tablet (Nitrostat) Pain ramipril 2.5 mg capsule 2.5 mg PO DAILY 03/03/22 Unk nown History spironolactone 25 mg tablet 12.5 mg PO DAILY 03/03/22 Unknown History carvedilol 3.125 mg tablet 3.125 mg PO BID 05/27/22 Un known History multivitamin 1 tab PO DAILY 07/06/22 Unkn own History pantoprazole 40 mg tablet,delayed 40 mg PO BID #60 tab s 03/15/23 Unknown Rx release acetaminophen 500 mg tablet 1,000 mg PO TID PRN pain 0 06/01/23 Unknown History (Tylenol Extra Strength) CPAP - Continuous Positive Airway 10/19/24 Unknown Hi story Pressure([facility] INFORMATIONAL USE ONLY) Allergy/AdvReac Type Severity Reaction Status Date / Time adhesive tape Allergy Intermediate Other Verified 10/19/24 09:49 hydrochlorothiazide (From Allergy Intermediate Other Verified 10/19/24 09:49 Avalide) irbesartan (From Avalide) Allergy Intermediate Other Verified 10/19/24 09:49 moxifloxacin (From Avelox) Allergy Intermediate Other Verified 10/19/24 09:49 Family History Father History of kidney cancer Surgical History History of cataract removal with insertion of prosthetic lens History of cardiac catheterization Hx of surgical procedure History of coronary artery stent placement Hx of cholecystectomy S/P PTCA (percutaneous transluminal coronary angioplasty) S/P CABG (coronary artery bypass graft) Social History Smoking Status: Former smoker pack-years: 30 how long ago did patient quit smokin years alcohol intake: never ROS Constitutional Constitutional: Denies fatigue, fever(s), poor appetite, weight gain or weight loss Gastrointestinal Gastrointestinal: Denies belching, bloating, change in bowel habits, change in stool character, chewing difficulty, coffee ground emesis, constipation, cramping, diarrhea, dyspepsia, dysphagia, early satiety, excessive flatus, fecal incontinence, heartburn, hematemesis, hematochezia, hemorrhoids, loose stools, melena, nausea, odynophagia, rectal bleeding, tenesmus, vomiting or weight changes Physical Exam Const alert, oriented x3, no apparent distress and healthy appearing General Appearance: cooperative GI normal to inspection, nondistended, normoactive bowel sounds, soft to palpation, non-tender and non-distended Percussion: normal to percussion Rectal Exam: deferred Assessment & Plan Assessment/Plan (1) Alternating constipation and diarrhea: (2) Anemia: PLAN: Quality Reporting Tobacco Screening ([facility] 138) Smoking Status: Light Smoker (<10/day) Assessment and Plan Assessment and Plan (1) Alternating constipation and diarrhea: Status: Chronic Plan: The differential diagnosis for his alternating constipation and diarrhea does include exocrine pancreatic insufficiency, IBS, small bacterial overgrowth, medication side effect. After having a long talk with his daughter I suspect that he has elements of gastroparesis but if he is getting full very fast. He is lost a significant amount of weight but he has lost some weight and he notices that his pants are little bit looser. He also has the presence of a ventral hernia on physical examination. He finds it very uncomfortable. I recommended a abdominal binder. CT scan of the abdomen pelvis with oral contrast did not show any abnormalities despite his crohn's disease antibody +. Also due to diagnosis because he takes aspirin and Plavix would be medication induced gastroparesis secondary to inflammation at the base of the stomach altering his contractility. He is having more constipation than diarrhea. He is on Metamucil therapy. We will institute lactulose therapy once in the morning and Metamucil once in the evening. Hopefully this will be a good regimen for him. He stopped the Lactulose because it was not working at a once a day dosing. His weight has been the same. He did start taking a colon cleanse medicine from his daughter. I told him that his diagnosis is slow transit constipation and that he gets overflow fecal incontinence. Therefore he has to take lactulose plus MiraLAX plus psyllium every day and magnesium 400 mg x 2 in the midday. He would do that regimen and possibly increase the a.m. regimen to twice a day if needed. That is a baseline regimen for him. We will continue that an make changes as needed to that regimen for 3 months.
--- NOTE | 2024-10-20 10:15 | PCM.PRE.AN2 ---
ASA Classification* ASA Classification ASA Classification: 3 Assessment & Plan Anesthesia* Anesthesia Assessment Anesthesia Assessment: Discussed sedation and/or anesthesia options, risks, benefits, and alternatives with patient/parents/legal guardian/POA. Questions invited. The patient/parents/legal guardian/POA seems to understand and agrees to proceed with anesthesia plan. Reviewed the physical assessment, medical history, allergy history and patient home medications list prior to surgery/procedure/anesthetic and documented any changes. Performed airway and anesthesia risk assessments. Anesthesia Type Anesthesia Type: MAC History Source History Obtained from:: Patient and Chart Anesthesia Focused Assessment* Oxygen Delivery Method: Room Air Airway Assessment Mouth opens: >3 cm Mallampati Score: III Neck Range of motion (ROM): Limited ROM Labs Anesthesia Preop lab: CBC WBC 5.6 K/mm3 (4.4-11.0) 05/15/24 10:05/15/24 RBC 4.16 M/mm3 (4.6-6.2) L 05/15/24 10:05/15/24 Hgb 12.6 g/dL (13.0-16.5) L 05/15/24 10:05/15/24 Hct 39.0 % (40-54) L 05/15/24 10:05/15/24 Plt Count 125 K/mm3 (150-450) L 05/15/24 10:05/15/24 CHEMISTRY Potassium 4.1 mmol/L (3.3-5.1) 05/15/24 10:05/15/24 Sodium 139 mmol/L (133-145) 05/15/24 10:05/15/24 BUN 28 mg/dL (4-19) H 05/15/24 10:05/15/24 Creatinine 1.37 mg/dL (0.70-1.20) H 05/15/24:05/15/24 Glucose 93 mg/dL (70-99) 05/15/24:05/15/24 COAG Pre-Assessment Diagnosis/Proposed Procedure Planned Operative Procedure(s): EGD Anesthesia History 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 When Was Last Pacemaker Check QUESTION #4 FULL TEXT: You/Your Family Experience fever (hyperthermia) with Anesthesia Last Oral Intake Last Oral intake: Last Oral Intake NPO since Meds taken in AM with sips of water? 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 Female No 10/19/24 09:50 HX of Motion Sickness No 10/19/24 09:50 HX of N/V After Surgery No 10/19/24 09:50 Non-Smoker Yes 10/19/24 09:50 Duration of Surgery greater No 10/19/24 09:50 than 60 minutes Number of Risk Factors 1 10/19/24 09:50 PONV Score Low Risk 10/19/24 09:50 Height & Weight Height & Weight: Anesthesia: Height & Weight Height 5 ft 11 in 05/23/24 13:13 Respiratory Assessment Respiratory Assessment - filter worker: Respiratory Tract Infection Hx - filter worker Hx Respiratory Tract Infection No 10/19/24 09:50 STOP Sleep Apnea STOP Sleep Apnea - filter worker: STOP Sleep Apnea - filter worker Hx Hypertension Yes: CONTROLLED WITH MEDS 10/19/24 09:50 Hx Sleep Apnea Yes 10/19/24 09:50 CPAP Yes 10/19/24 09:50 BIPAP No 10/19/24 09:50 Do you snore loudly (louder than talking or can be heard Do you often feel tired/ fatigued/ sleepy during daytime? Has anyone observed you stop breathing during sleep? STOP Results Positive 10/19/24 09:50 QUESTION #5 FULL TEXT : Do you snore loudly (louder than talking or can be heard through closed doors)? 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 Specify any problems Hx of Preganancy in last 3 N/A 10/19/24 09:50 Months Nurse Filling Out Transfusion NBUCHER 10/19/24 09:50 & Questions: Date: 10/19/24 10/19/24 09:50 Time: 09:50 10/19/24 09:50 Patient unable to answer at this time (ie. confused, unrespo /Reproduction History /Reproductive History - filter worker: /Reproductive Hx- filter worker Hx Now No 10/19/24 09:50 Gestational Age (in weeks): EDC: Hx Hx Para Hx Section SAB No 10/19/24 09:50 Active Medications Active Medications: Current Medications Generic Name Dose Route Start Last Admin Trade Name Freq PRN Reason Stop Dose Admin Lactated Ringer's 1,000 mls @ 15 mls/hr 10/20/24 10:00 IV .Q48H BJ PFSH Medical History Open wound History of steroid therapy Arthritis High cholesterol Back pain Former smoker CPAP (continuous positive airway pressure) dependence Sleep apnea History of edema History of echocardiogram History of stress test History of pacemaker History of heart attack History of irregular heartbeat Cardiology follow-up encounter Cardiac pacemaker Old myocardial infarction GERD (gastroesophageal reflux disease) History of colon polyps Abdominal pain Tremor External hemorrhoid History of squamous cell carcinoma Chronic systolic (congestive) heart failure Edema of right lower extremity Occlusion and stenosis of bilateral carotid arteries DORENE (obstructive sleep apnea) HLD (hyperlipidemia) HTN (hypertension) Restrictive lung disease Acute gastritis without bleeding Left inguinal hernia Chronic constipation Umbilical hernia Low back pain BPH (benign prostatic hyperplasia) Cervical spinal stenosis Ischemic cardiomyopathy Chronic kidney disease, stage 3b Elevated PSA CAD (coronary artery disease) Elevated TSH Home Medications ?Medication ?Instructions ?Recorded ?Last Taken ?Type aspirin 81 mg tablet,delayed 81 mg PO DAILY 03/03/22 10/19/24 10:13 History release (Adult Aspirin Regimen) atorvastatin 20 mg tablet 20 mg PO DAILY 03/03/22 Unknown History clopidogrel 75 mg tablet 75 mg PO DAILY 03/03/22 10/13/24 History furosemide 20 mg tablet 20 mg PO DAILY 03/03/22 Unknown History nitroglycerin 0.4 mg sublingual 0.4 mg sublingual Q5M PRN Chest 03/03/22 Unknown History tablet (Nitrostat) Pain ramipril 2.5 mg capsule 2.5 mg PO DAILY 03/03/22 Unknown History spironolactone 25 mg tablet 12.5 mg PO DAILY 03/03/22 Unknown History carvedilol 3.125 mg tablet 3.125 mg PO BID 05/27/22 Unknown History multivitamin 1 tab PO DAILY 07/06/22 Unknown History pantoprazole 40 mg tablet,delayed 40 mg PO BID #60 tabs 03/15/23 Unknown Rx release acetaminophen 500 mg tablet 1,000 mg PO TID PRN pain 06/01/23 Unknown History (Tylenol Extra Strength) CPAP - Continuous Positive Airway 10/19/24 Unknown History Pressure([facility] INFORMATIONAL USE ONLY) Allergy/AdvReac Type Severity Reaction Status Date / Time adhesive tape Allergy Intermediate Other Verified 10/20/24 10:12 hydrochlorothiazide (From Allergy Intermediate Other Verified 10/20/24 10:12 Avalide) irbesartan (From Avalide) Allergy Intermediate Other Verified 10/20/24 10:12 moxifloxacin (From Avelox) Allergy Intermediate Other Verified 10/20/24 10:12 Family History Father History of kidney cancer Surgical History History of cataract removal with insertion of prosthetic lens History of cardiac catheterization Hx of surgical procedure History of coronary artery stent placement Hx of cholecystectomy S/P PTCA (percutaneous transluminal coronary angioplasty) S/P CABG (coronary artery bypass graft) Social History Smoking Status: Former smoker pack-years: 30 how long ago did patient quit smokin years alcohol intake: never Review of Systems (Anesthesia) ROS Narrative System reviewed and no additional complaints, except as documented.
[2024-10-20] MEDS: Lactated Ringers 1,000 ML 15 ML IV (10:25)
--- NOTE | 2024-10-20 10:45 | EGD_PTH ---
PATIENT: LIZZ GAONA LOC: EN U#:[id number] AGE/SX: 88/M ROOM: RE10/20/[address]: Dr. Charlie Michelle DO : 1935 BED: DIS: 10/20/2024 SPEC #: [id number] RECD: 10/20/24 11:42 STATUS: СВЕТЛАНА JANIE #: [id number] SHIRIN: 10/20/24 10:[address]: Charlie Michelle DEPT: SURGICAL PATHOLOGY RECD BY: Seven Buchanan ENTERED: 10/20/24 14:05 SP TYPE: EGD BIOPSY AJAY DR: Dr. Cornelius Pino MD Tissues: A - Duodenum, NOS Procedures: Surgery Specimen Level IV HEADER OPERATION: EGD and gold probe cautery and biopsy PRE-OP DIAGNOSIS: Anemia TISSUE SUBMITTED: A- Duodenum biopsy MICROSCOPIC DIAGNOSIS A. 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 - Negative for increased intraepithelial lymphocytes. MICROSCOPIC DESCRIPTION Slides are reviewed. GROSS DESCRIPTION A. Received in fixative is one container labeled with the patient's name and designated Duodenum biopsy. The specimen consists of one irregular fragment of light durham soft tissue that measures 0.3 cm. The specimen is totally submitted in one cassette. [place] 10/20/2024 CPT:80251
[2024-10-20] MEDS: Lidocaine 1% (5 ml sdv) 5 ML Vial 10 ML IV (11:05)
--- NOTE | 2024-10-20 11:17 | PCM.POST.ANE ---
Anesthesia: Postop Eval I Current Vital Signs Temperature: 98 F Pulse Rate: 60 Blood Pressure: 123/62 Respiratory Rate: 14 Pulse Ox: 100 Oxygen Delivery Method: Room Air Assessment Airway patent: Yes Spontaneous unlabored respirations: Yes Mental status: Awake and Calm nausea: No Vomiting: No Anesthesia Complication: No Fluid Hydration Crystalloid volume administer (ml): 500 Total IV fluid infused: 500 Progress Note Anesthesia document: Postop Eval 1 completed: Yes
--- NOTE | 2024-10-20 11:25 | POSTOPAN2_ITS ---
Anesthesia Postop Eval I Sum Postop Eval Completion status Anesthesia document: Postop Eval 1 completed: Yes Anesthesia Postop Eval I Summary Anesthesia Postop Eval I Summary: Anesthesia Postop Eval I: Assessment Summary Airway patent Yes 10/20/24 11:17 DIESEL LUBE [email or web address] Spontaneous unlabored Yes 10/20/24 11:17 DIESEL LUBE TECH.MDOT respirations Mental status Awake,Calm 10/20/24 11:17 DIESEL LUBE TECH.MDOT nausea No 10/20/24 11:17 DIESEL LUBE TECH.MDOT Vomiting No 10/20/24 11:17 DIESEL LUBE TECH.MDOT Anesthesia Postop Eval I: Fluid Summary Crystalloid volume administer 500 10/20/24 11:17 DIESEL LUBE TECH.MDOT (ml) Colloids volume administered ( ml) Blood Product volume administered (ml) Total IV fluid infused 500 10/20/24 11:17 DIESEL LUBE TECH.MDOT Anesthesia Postop Eval I: Summary Notes Anesthesia Complication No 10/20/24 11:17 DIESEL LUBE TECH.MDOT Anesthesia Complication Comment: Post-operative progress note Anesthesia: Postop Eval II Evaluation Mental status: Awake and Calm Pain Level: 0 nausea: No Vomiting: No Complications Anesthesia Complication: No
--- NOTE | 2024-10-20 11:25 | PCM.POSTANE2 ---
Anesthesia Postop Eval I Sum Postop Eval Completion status Anesthesia document: Postop Eval 1 completed: Yes Anesthesia Postop Eval I Summary Anesthesia Postop Eval I Summary: Anesthesia Postop Eval I: Assessment Summary Airway patent Yes 10/20/24 11:17 HOGSHEAD STOCK [email or web address] Spontaneous unlabored Yes 10/20/24 11:17 HOGSHEAD STOCK CLERK.MDOT respirations Mental status Awake,Calm 10/20/24 11:17 HOGSHEAD STOCK CLERK.MDOT nausea No 10/20/24 11:17 HOGSHEAD STOCK CLERK.MDOT Vomiting No 10/20/24 11:17 HOGSHEAD STOCK CLERK.MDOT Anesthesia Postop Eval I: Fluid Summary Crystalloid volume administer 500 10/20/24 11:17 HOGSHEAD STOCK CLERK.MDOT (ml) Colloids volume administered ( ml) Blood Product volume administered (ml) Total IV fluid infused 500 10/20/24 11:17 HOGSHEAD STOCK CLERK.MDOT Anesthesia Postop Eval I: Summary Notes Anesthesia Complication No 10/20/24 11:17 HOGSHEAD STOCK CLERK.MDOT Anesthesia Complication Comment: Post-operative progress note Anesthesia: Postop Eval II Evaluation Mental status: Awake and Calm Pain Level: 0 nausea: No Vomiting: No Complications Anesthesia Complication: No
--- NOTE | 2024-10-20 11:36 | OP.EGD_ITS ---
Patient Name: Branden Bosch Procedure Date: 10/20/2024 10:58 AM Date of : 1935 Age: 88 Procedure: Upper GI endoscopy Indications: Iron deficiency anemia, Functional Dyspepsia Providers: Charlie Michelle DO Referring MD: Tricia Primary Care Physician Medicines: Monitored Anesthesia Care Patient Profile: This is an 88 year old male. Patient has symptoms. Complications: No immediate complications. Procedure: Pre-Anesthesia Assessment: - Prior to the procedure, a History and Physical was performed, and patient medications and allergies were reviewed. The patient is competent. The risks and benefits of the procedure and the sedation options and risks were discussed with the patient. All questions were answered and informed consent was obtained. Patient identification and proposed procedure were verified by the physician in the pre-procedure area. Mental Status Examination: alert and oriented. Airway Examination: normal oropharyngeal airway and neck mobility. Respiratory Examination: clear to auscultation. CV Examination: normal. Prophylactic Antibiotics: The patient does not require prophylactic antibiotics. Prior Anticoagulants: The patient has taken no anticoagulant or antiplatelet agents except for NSAID medication. ASA Grade Assessment: II - A patient with mild systemic disease. After reviewing the risks and benefits, the patient was deemed in satisfactory condition to undergo the procedure. The anesthesia plan was to use monitored anesthesia care (MAC). Immediately prior to administration of medications, the patient was re-assessed for adequacy to receive sedatives. The heart rate, respiratory rate, oxygen saturations, blood pressure, adequacy of pulmonary ventilation, and response to care were monitored throughout the procedure. The physical status of the patient was re-assessed after the procedure. After obtaining informed consent, the endoscope was passed under direct vision. Throughout the procedure, the patient's blood pressure, pulse, and oxygen saturations were monitored continuously. The Endoscope was introduced through the mouth, and advanced to the fourth part of the duodenum. Small bowel enteroscopy was deemed necessary. The upper GI endoscopy was accomplished without difficulty. The patient tolerated the procedure well. Scope In: 11:11:54 AM Scope Out: 11:16:30 AM Total Procedure Duration Time 0 hours 4 minutes 36 seconds Findings: No gross lesions were noted in the entire esophagus. No gross lesions were noted in the entire examined stomach. A few 10 mm angiodysplastic lesions with bleeding were found in the duodenal bulb. Coagulation for hemostasis using heater probe was successful. Estimated blood loss was minimal. Patchy mild inflammation was found in the entire duodenum. Biopsies were taken with a cold forceps for histology. Verification of patient identification for the specimen was done. Estimated blood loss was minimal. Impression: - No gross lesions in the entire esophagus. - No gross lesions in the entire stomach. 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 Treated with a heater probe. - Chronic duodenitis. Biopsied. Recommendation: - Discharge patient to home. - Resume previous diet. - Continue present medications. - Await pathology results. Procedure Code(s): --- Professional --- 17425, 59, Small intestinal endoscopy, enteroscopy beyond second portion of duodenum, not including ileum; with control of bleeding (eg, injection, bipolar cautery, unipolar cautery, laser, heater probe, stapler, plasma wholesale loan processor) 10024, 51, Small intestinal endoscopy, enteroscopy beyond second portion of duodenum, not including ileum; with biopsy, single or multiple CPT copyright 2021 [employer]. All rights reserved. The codes documented in this report are preliminary and upon drier unloader review may be revised to meet current compliance requirements. Charlie Michelle DO 10/20/2024 11:35:37 AM This report has been signed electronically. Number of Addenda: 0 Note Initiated On: 10/20/2024 10:58 AM
--- NOTE | 2024-10-20 11:36 | OP.PROVAT_ITS ---
10/20/2024 No Primary Care Physician Re : [facility] This procedure was performed on Sunday, October 20, 2024. My impressions and recommendations are as follows: Impressions : - No gross lesions in the entire esophagus. - No gross lesions in the entire stomach. 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 Treated with a heater probe. - Chronic duodenitis. Biopsied. Recommendations : - Discharge patient to home. - Resume previous diet. - Continue present medications. - Await pathology results. My findings are described in the full procedure note, which is enclosed. If I can be of further assistance, please feel free to contact me at . Sincerely, Charlie Michelle, 10/20/2024 11:35:37 AM This report has been signed electronically.
--- NOTE | 2024-10-20 11:52 | POSTOPAN2_ITS ---
Anesthesia Postop Eval I Sum Postop Eval Completion status Anesthesia document: Postop Eval 1 completed: Yes Anesthesia Postop Eval I Summary Anesthesia Postop Eval I Summary: Anesthesia Postop Eval I: Assessment Summary Airway patent Yes 10/20/24 11:17 HIP HOP [email or web address] Spontaneous unlabored Yes 10/20/24 11:17 HIP HOP DANCER.MDOT respirations Mental status Awake,Calm 10/20/24 11:26 HIP HOP DANCER.MDOT nausea No 10/20/24 11:26 HIP HOP DANCER.MDOT Vomiting No 10/20/24 11:26 HIP HOP DANCER.MDOT Anesthesia Postop Eval I: Fluid Summary Crystalloid volume administer 500 10/20/24 11:17 HIP HOP DANCER.MDOT (ml) Colloids volume administered ( ml) Blood Product volume administered (ml) Total IV fluid infused 500 10/20/24 11:17 HIP HOP DANCER.MDOT Anesthesia Postop Eval I: Summary Notes Anesthesia Complication No 10/20/24 11:26 HIP HOP DANCER.MDOT Anesthesia Complication Comment: Post-operative progress note Anesthesia: Postop Eval II Evaluation Mental status: Awake and Calm Pain Level: 0 nausea: No Vomiting: No Complications Anesthesia Complication: No
--- NOTE | 2024-10-20 11:52 | PCM.POSTANE2 ---
Anesthesia Postop Eval I Sum Postop Eval Completion status Anesthesia document: Postop Eval 1 completed: Yes Anesthesia Postop Eval I Summary Anesthesia Postop Eval I Summary: Anesthesia Postop Eval I: Assessment Summary Airway patent Yes 10/20/24 11:17 SUPERVISOR COIN MACHINE.MDOT Spontaneous unlabored Yes 10/20/24 11:17 SUPERVISOR COIN MACHINE.MDOT respirations Mental status Awake,Calm 10/20/24 11:26 SUPERVISOR COIN MACHINE.MDOT nausea No 10/20/24 11:26 SUPERVISOR COIN MACHINE.MDOT Vomiting No 10/20/24 11:26 SUPERVISOR COIN MACHINE.MDOT Anesthesia Postop Eval I: Fluid Summary Crystalloid volume administer 500 10/20/24 11:17 SUPERVISOR COIN MACHINE.MDOT (ml) Colloids volume administered ( ml) Blood Product volume administered (ml) Total IV fluid infused 500 10/20/24 11:17 SUPERVISOR COIN MACHINE.MDOT Anesthesia Postop Eval I: Summary Notes Anesthesia Complication No 10/20/24 11:26 SUPERVISOR COIN MACHINE.MDOT Anesthesia Complication Comment: Post-operative progress note Anesthesia: Postop Eval II Evaluation Mental status: Awake and Calm Pain Level: 0 nausea: No Vomiting: No Complications Anesthesia Complication: No
== END 2024-10-20 12:17 | disposition home or self-care (01) ==
LOC: EN 09:29 → AC 09:45
PROVIDERS: PCP Internal Medicine; Referring Provider Internal Medicine; Visit Provider Internal Medicine Gastroenterology
PROC: 0DJ08ZZ Inspection of Upper Intestinal Tract, Via Natural or Artificial Opening Endoscopic (ICD-10-PCS; CPT 43235; principal; 2024-10-20 10:40)
DX: K31.811 Angiodysplasia of stomach and duodenum with bleeding (principal); I50.22 Chronic systolic (congestive) heart failure; I13.0 Hypertensive heart and chronic kidney disease with heart failure and stage 1 through stage 4 chronic kidney disease, or unspecified chronic kidney disease; N18.32 Chronic kidney disease, stage 3b; D50.9 Iron deficiency anemia, unspecified; K21.9 Gastro-esophageal reflux disease without esophagitis; K52.9 Noninfective gastroenteritis and colitis, unspecified; K43.9 Ventral hernia without obstruction or gangrene; K59.09 Other constipation; K29.80 Duodenitis without bleeding; I25.2 Old myocardial infarction; I25.5 Ischemic cardiomyopathy; I25.10 Atherosclerotic heart disease of native coronary artery without angina pectoris; N40.0 Benign prostatic hyperplasia without lower urinary tract symptoms; E78.00 Pure hypercholesterolemia, unspecified; G47.33 Obstructive sleep apnea (adult) (pediatric); Z95.1 Presence of aortocoronary bypass graft; Z95.0 Presence of cardiac pacemaker; Z86.0100 Personal history of colon polyps, unspecified; Z90.49 Acquired absence of other specified parts of digestive tract; Z87.19 Personal history of other diseases of the digestive system; Z79.82 Long term (current) use of aspirin; Z79.02 Long term (current) use of antithrombotics/antiplatelets; Z85.828 Personal history of other malignant neoplasm of skin; Z79.899 Other long term (current) drug therapy; Z87.891 Personal history of nicotine dependence
CPT/HCPCS: 44366; 44361; 88305; C1889